=== PATIENT | female | born 1985 | race Caucasian/White ===

== ENCOUNTER → 2020-09-08 | Outpatient (CLI) | payer OTHER ==
[~2020-09-08] MED LIST: CLEOCIN HCL300 MG PO; CYCLOBENZAPRINE10 MG PO; HYDROCODON-ACE1 EAC4 PO; PERCOCET 7.5-31 EACH PO; PREDNISONE 50 M50 MG PO; PREDNISONE20 MG PO; TESSALON PERLE100 MG PO; ZOFRAN ODT 4 MG4 MG PO
== END ==
LOC: RAD 10:47
DX: M54.5 Low back pain (principal); M25.551 Pain in right hip; M25.552 Pain in left hip; M47.817 Spondylosis without myelopathy or radiculopathy, lumbosacral region
CPT/HCPCS: 72110; 73522

== ENCOUNTER 2021-02-10 15:28 | Emergency (ER) | payer OTHER ==
[~2021-02-10 15:28] MED LIST changes: -CYCLOBENZAPRINE10 MG PO; -HYDROCODON-ACE1 EAC4 PO; -PERCOCET 7.5-31 EACH PO; -PREDNISONE20 MG PO; -ZOFRAN ODT 4 MG4 MG PO
[2021-02-10 16:56] LABS: HEMOGLOBIN 12.6 gm/dl (12.3-15.3); RED BLOOD COUNT 4.96 M/UL (4.00-5.10); WHITE BLOOD COUNT 9.3 K/UL (4.5-11.0)
[2021-02-10 17:27] LABS: BUN/CREATININE RATIO 33 (0-10)
[2021-02-10] MEDS ORDERED: HYDROCODON-ACE1 EAC4 PO (18:06)
[2021-02-10] MEDS ORDERED: ZOFRAN ODT 4 MG4 MG PO (18:14)
== END 2021-02-10 18:33 | disposition home or self-care (01) ==
LOC: ER1 15:28
PROVIDERS: Emergency Medicine
DX: M54.42 Lumbago with sciatica, left side (principal); E11.9 Type 2 diabetes mellitus without complications; I10 Essential (primary) hypertension; Z90.49 Acquired absence of other specified parts of digestive tract; Z79.4 Long term (current) use of insulin
CPT/HCPCS: 72131; 80053; 85025; 85652; 86140; 96372; 96374; 96375; 99284; J1100; J2270; J2405

== ENCOUNTER 2021-02-12 09:49 | Emergency (ER) | payer OTHER ==
[~2021-02-12 09:49] MED LIST changes: +HYDROCODON-ACE1 EAC4 PO; +ZOFRAN ODT 4 MG4 MG PO
[2021-02-12] MEDS ORDERED: PERCOCET 7.5-31 EACH PO (14:38)
[2021-02-12] MEDS ORDERED: PREDNISONE20 MG PO (14:38)
[2021-02-12] MEDS ORDERED: CYCLOBENZAPRINE10 MG PO (14:38)
== END 2021-02-12 14:50 | disposition home or self-care (01) ==
LOC: ER1 09:49
DX: M54.42 Lumbago with sciatica, left side (principal); E11.9 Type 2 diabetes mellitus without complications; I10 Essential (primary) hypertension; E66.01 Morbid (severe) obesity due to excess calories; Z79.899 Other long term (current) drug therapy
CPT/HCPCS: 96374; 96375; 96376; 99283; J1170; J2270; J2405; J2930

== ENCOUNTER 2021-10-21 19:57 | Emergency (ER) | payer BC, OTHER ==
[~2021-10-21 19:57] MED LIST changes: +CYCLOBENZAPRINE10 MG PO; +PERCOCET 7.5-31 EACH PO; +PREDNISONE20 MG PO
[2021-10-21 21:55] LABS: HEMOGLOBIN 10.6 gm/dl (12.3-15.3); RED BLOOD COUNT 5.28 M/UL (4.00-5.10); WHITE BLOOD COUNT 4.2 K/UL (4.5-11.0)
[2021-10-21 23:04] LABS: BUN/CREATININE RATIO 11 (0-10)
[2021-10-22] MEDS ORDERED: ELIQUIS5 MG PO (03:57)
== END 2021-10-22 04:01 | disposition home or self-care (01) ==
LOC: ER1 19:57
PROVIDERS: Physician Assistant
DX: R06.02 Shortness of breath (principal); E10.9 Type 1 diabetes mellitus without complications; I10 Essential (primary) hypertension; Z20.822 Contact with and (suspected) exposure to COVID-19; Z86.711 Personal history of pulmonary embolism; Z86.718 Personal history of other venous thrombosis and embolism
CPT/HCPCS: 71045; 80053; 82550; 82553; 84484; 84703; 85025; 93005; 96374; 99285; J1885; Q9967; U0002